=== PATIENT | female | born 1955 | race Caucasian/White ===

== ENCOUNTER → 2019-03-22 | Outpatient (CLI) | payer BC | END | disposition home or self-care (01) | LOC: LAB SHORT 09:24 → LAB EV 09:24 | DX: N39.0 Urinary tract infection, site not specified (principal) | CPT/HCPCS: 87077; 87086; 87186 ==

== ENCOUNTER 2019-05-27 23:18 | Emergency (ER) | payer BC ==
[~2019-05-27] VITALS: Ht 160 cm; Wt 78.5 kg
[2019-05-27] MEDS ORDERED: PEPCID40 MG PO (23:33)
[2019-05-28 00:11] LABS: Source, Urine Clean Catch
[2019-05-28 00:13] LABS: Appearance, Urine Cloudy (Clear); Bilirubin, Urine Neg (Neg); Blood, Urine 5+ (Neg); Color, Urine Yellow (P-Yellow); Glucose Qualitative, Urine Neg (Neg); Ketones, Urine Neg (Neg); Leukocyte Esterase, Urine 3+ (Neg); Nitrite, Urine Neg (Neg); Protein, Urine 3+ (Neg); Urobilinogen, Urine NORM (Normal)
[2019-05-28 00:23] LABS: Bacteria Mod /hpf; Red Blood Cells, Urine 25-50 /hpf (0-2); Squamous Epithelial Cells Not Seen /hpf (Few); White Blood Cells, Urine TNTC /hpf (0-5)
[2019-05-28 00:35] LABS: BASOPHILS ABSOLUTE AUTO 0.03 K/mm3 (0.00-0.23); BASOPHILS PERCENT AUTO 0 % (0-2); EOSINOPHILS ABSOLUTE AUTO 0.09 K/mm3 (0.00-0.68); EOSINOPHILS PERCENT AUTO 1 % (0-6); Hematocrit 40.2 % (33.0-51.0); Hemoglobin 13.2 g/dL (11.5-16.0); IMMATURE GRAN ABSOLUTE AUTO 0.02 K/mm3 (0.00-0.10); IMMATURE GRAN PERCENT AUTO 0 % (0-1); LYMPHOCYTES ABSOLUTE AUTO 0.89 K/mm3 (0.84-5.20); LYMPHOCYTES PERCENT AUTO 10 % (21-46); MONOCYTES ABSOLUTE AUTO 0.73 K/mm3 (0.16-1.47); MONOCYTES PERCENT AUTO 8 % (4-13); Mean Corpuscular HGB Conc 32.8 g/dL (31.5-36.5); Mean Corpuscular Volume 97 fL (80-100); Mean Platelet Volume 10.6 fL (9.1-12.4); NEUTROPHILS ABSOLUTE AUTO 7.14 K/mm3 (1.96-9.15); NEUTROPHILS PERCENT AUTO 80 % (41-73); Platelet Count 215 K/mm3 (150-400); RDW Coefficient Variation 12.7 % (11.7-14.2); RDW Standard Deviation 45.8 fL (35.1-46.3); Red Blood Cell Count 4.13 M/mm3 (3.80-5.20)
[2019-05-28 00:47] LABS: Alanine Aminotransfer (ALT/SGP 34 U/L (12-78); Albumin, Blood 3.7 g/dL (3.4-5.0); Albumin/Globulin Ratio 0.9 (0.8-1.8); Alk Phos 114 U/L (50-136); Anion Gap 7 mmol/L (6-16); Aspartate Aminotrans (AST/SGOT 23 U/L (12-37); Bilirubin, Total 0.3 mg/dL (0.1-1.0); Blood Urea Nitrogen 18 mg/dL (8-24); Bun/Creatinine Ratio 21.7 (12.0-20.0); CO2, Blood 26 mmol/L (21-32); Calcium, Blood 9.1 mg/dL (8.5-10.1); Chloride, Blood 106 mmol/L (98-108); Creatinine, Blood 0.83 mg/dL (0.40-1.00); Glomerular Filtration Rate >60 (60-); Glucose, Blood 107 mg/dL (70-99); Potassium, Blood 3.8 mmol/L (3.5-5.5); Sodium, Blood 139 mmol/L (136-145); Total Protein, Blood 7.7 g/dL (6.4-8.2)
[2019-05-28] MEDS ORDERED: IBUP600 PO (01:57)
[2019-05-28] MEDS ORDERED: CEPH500 PO (01:57)
== END 2019-05-28 02:15 | disposition home or self-care (01) ==
LOC: ER 23:18
PROVIDERS: Emergency Medicine
DX: N39.0 Urinary tract infection, site not specified (principal); Z87.442 Personal history of urinary calculi; K21.9 Gastro-esophageal reflux disease without esophagitis; E78.5 Hyperlipidemia, unspecified; Z88.2 Allergy status to sulfonamides
CPT/HCPCS: 36415; 74176; 80053; 81001; 83690; 85025; 87077; 87086; 87186; 96365; 96375; 99284; J0696; J2270; J2405; J7030

== ENCOUNTER 2020-04-11 17:36 | Emergency (ER) | payer BC ==
[~2020-04-11] VITALS: Ht 160 cm; Wt 79.4 kg
[~2020-04-11 17:36] MED LIST: CEPH500 PO; IBUP600 PO; PEPCID40 MG PO
[2020-04-11 18:08] LABS: Source, Urine Clean Catch
[2020-04-11 18:12] LABS: BASOPHILS ABSOLUTE AUTO 0.04 K/mm3 (0.00-0.23); BASOPHILS PERCENT AUTO 0 % (0-2); EOSINOPHILS ABSOLUTE AUTO 0.04 K/mm3 (0.00-0.68); EOSINOPHILS PERCENT AUTO 0 % (0-6); Hematocrit 41.8 % (33.0-51.0); Hemoglobin 13.7 g/dL (11.5-16.0); IMMATURE GRAN ABSOLUTE AUTO 0.01 K/mm3 (0.00-0.10); IMMATURE GRAN PERCENT AUTO 0 % (0-1); LYMPHOCYTES ABSOLUTE AUTO 1.24 K/mm3 (0.84-5.20); LYMPHOCYTES PERCENT AUTO 13 % (21-46); MONOCYTES ABSOLUTE AUTO 0.61 K/mm3 (0.16-1.47); MONOCYTES PERCENT AUTO 6 % (4-13); Mean Corpuscular HGB 31.5 pg (26.0-34.0); Mean Corpuscular HGB Conc 32.8 g/dL (31.5-36.5); Mean Corpuscular Volume 96 fL (80-100); Mean Platelet Volume 10.2 fL (9.1-12.4); NEUTROPHILS ABSOLUTE AUTO 7.99 K/mm3 (1.96-9.15); NEUTROPHILS PERCENT AUTO 81 % (41-73); Platelet Count 248 K/mm3 (150-400); RDW Coefficient Variation 12.9 % (11.7-14.2); RDW Standard Deviation 46.5 fL (35.1-46.3); Red Blood Cell Count 4.35 M/mm3 (3.80-5.20); White Blood Cell Count 9.93 K/mm3 (4.00-11.30)
[2020-04-11 18:20] LABS: Appearance, Urine Clear (Clear); Bilirubin, Urine Neg (Neg); Blood, Urine Neg (Neg); Color, Urine Yellow (P-Yellow); Glucose Qualitative, Urine Neg (Neg); Ketones, Urine Neg (Neg); Leukocyte Esterase, Urine Neg (Neg); Nitrite, Urine Neg (Neg); Protein, Urine Neg (Neg); Specific Gravity, Urine 1.015 (1.003-1.022); Urobilinogen, Urine NORM (Normal)
[2020-04-11 18:32] LABS: Alanine Aminotransfer (ALT/SGP 48 U/L (12-78); Albumin, Blood 3.8 g/dL (3.4-5.0); Alk Phos 148 U/L (50-136); Anion Gap 8 mmol/L (6-16); Aspartate Aminotrans (AST/SGOT 32 U/L (12-37); Bilirubin, Total 0.3 mg/dL (0.1-1.0); Blood Urea Nitrogen 11 mg/dL (8-24); Bun/Creatinine Ratio 13.9 (12.0-20.0); CO2, Blood 22 mmol/L (21-32); Calcium, Blood 9.2 mg/dL (8.5-10.1); Chloride, Blood 108 mmol/L (98-108); Creatinine, Blood 0.79 mg/dL (0.40-1.00); Globulin, Blood 3.7 g/dL (2.2-4.0); Glomerular Filtration Rate >60 (60-); Glucose, Blood 105 mg/dL (70-99); Potassium, Blood 3.8 mmol/L (3.5-5.5); Sodium, Blood 138 mmol/L (136-145); Total Protein, Blood 7.5 g/dL (6.4-8.2)
[2020-04-11] MEDS ORDERED: AMOCLA875 PO (19:30)
[2020-04-11] MEDS ORDERED: HYDR1TAB94 PO (19:30)
== END 2020-04-11 20:02 | disposition home or self-care (01) ==
LOC: ER 17:36
PROVIDERS: Physician Assistant
DX: K57.33 Diverticulitis of large intestine without perforation or abscess with bleeding (principal); K21.9 Gastro-esophageal reflux disease without esophagitis; E78.5 Hyperlipidemia, unspecified; Z88.2 Allergy status to sulfonamides; Z79.899 Other long term (current) drug therapy
CPT/HCPCS: 36415; 74177; 80053; 81003; 83605; 83690; 84484; 85025; 93005; 93010; 96374-59; 96375; 99284-25; J2270; J2405; J2550; J7030; Q9967

== ENCOUNTER → 2020-07-20 | Outpatient (CLI) | payer BC ==
[~2020-07-20] MED LIST changes: +AMOCLA875 PO; +HYDR1TAB94 PO
[2020-07-25 09:09] LABS: HPV 16 Negative (Negative); HPV 18 Negative (Negative); HPV OTHER HR TYPES Negative (Negative)
== END ==
LOC: LAB 16:59 → LAB SHORT 16:59
PROVIDERS: Family Medicine
DX: Z01.419 Encounter for gynecological examination (general) (routine) without abnormal findings (principal)
CPT/HCPCS: 87624; G0123

== ENCOUNTER → 2020-12-04 | Outpatient (CLI) | payer MEDICARE, BC ==
[2020-12-04 11:59] LABS: BASOPHILS ABSOLUTE AUTO 0.02 K/mm3 (0.00-0.23); BASOPHILS PERCENT AUTO 1 % (0-2); EOSINOPHILS ABSOLUTE AUTO 0.05 K/mm3 (0.00-0.68); EOSINOPHILS PERCENT AUTO 1 % (0-6); Hematocrit 42.6 % (33.0-51.0); Hemoglobin 14.6 g/dL (11.5-16.0); IMMATURE GRAN ABSOLUTE AUTO 0.01 K/mm3 (0.00-0.10); IMMATURE GRAN PERCENT AUTO 0 % (0-1); LYMPHOCYTES ABSOLUTE AUTO 1.15 K/mm3 (0.84-5.20); LYMPHOCYTES PERCENT AUTO 27 % (21-46); MONOCYTES ABSOLUTE AUTO 0.46 K/mm3 (0.16-1.47); MONOCYTES PERCENT AUTO 11 % (4-13); Mean Corpuscular HGB Conc 34.3 g/dL (31.5-36.5); Mean Corpuscular Volume 93 fL (80-100); Mean Platelet Volume 10.3 fL (9.1-12.4); NEUTROPHILS ABSOLUTE AUTO 2.63 K/mm3 (1.96-9.15); NEUTROPHILS PERCENT AUTO 61 % (41-73); Platelet Count 175 K/mm3 (150-400); RDW Coefficient Variation 13.1 % (11.7-14.2); RDW Standard Deviation 44.6 fL (35.1-46.3); Red Blood Cell Count 4.56 M/mm3 (3.80-5.20); White Blood Cell Count 4.32 K/mm3 (4.00-11.30)
[2020-12-04 12:11] LABS: Alanine Aminotransfer (ALT/SGP 59 U/L (12-78); Albumin, Blood 3.9 g/dL (3.4-5.0); Albumin/Globulin Ratio 0.9 (0.8-1.8); Alk Phos 204 U/L (40-126); Anion Gap 10 mmol/L (6-16); Aspartate Aminotrans (AST/SGOT 36 U/L (12-37); Bilirubin, Total 0.4 mg/dL (0.1-1.0); Blood Urea Nitrogen 10 mg/dL (8-24); Bun/Creatinine Ratio 10.8 (12.0-20.0); CO2, Blood 27 mmol/L (21-32); Calcium, Blood 8.9 mg/dL (8.5-10.1); Chloride, Blood 102 mmol/L (98-108); Creatinine, Blood 0.93 mg/dL (0.40-1.00); Globulin, Blood 4.2 g/dL (2.2-4.0); Glomerular Filtration Rate >60 (60-); Glucose, Blood 112 mg/dL (70-99); Potassium, Blood 3.9 mmol/L (3.5-5.5); Sodium, Blood 139 mmol/L (136-145); Total Protein, Blood 8.1 g/dL (6.4-8.2)
== END | disposition home or self-care (01) ==
LOC: LAB SHORT 11:56 → LAB 11:56
PROVIDERS: Chiropractor
DX: R11.2 Nausea with vomiting, unspecified (principal)
CPT/HCPCS: 80053; 85025

== ENCOUNTER → 2020-12-07 | Outpatient (CLI) | payer MEDICARE, BC ==
[2020-12-07 12:12] LABS: BASOPHILS ABSOLUTE AUTO 0.02 K/mm3 (0.00-0.23); BASOPHILS PERCENT AUTO 1 % (0-2); EOSINOPHILS ABSOLUTE AUTO 0.01 K/mm3 (0.00-0.68); EOSINOPHILS PERCENT AUTO 0 % (0-6); Hematocrit 39.8 % (33.0-51.0); Hemoglobin 13.8 g/dL (11.5-16.0); IMMATURE GRAN ABSOLUTE AUTO 0.02 K/mm3 (0.00-0.10); IMMATURE GRAN PERCENT AUTO 1 % (0-1); LYMPHOCYTES ABSOLUTE AUTO 0.84 K/mm3 (0.84-5.20); LYMPHOCYTES PERCENT AUTO 20 % (21-46); MONOCYTES ABSOLUTE AUTO 0.35 K/mm3 (0.16-1.47); MONOCYTES PERCENT AUTO 8 % (4-13); Mean Corpuscular HGB 32.4 pg (26.0-34.0); Mean Corpuscular HGB Conc 34.7 g/dL (31.5-36.5); Mean Corpuscular Volume 93 fL (80-100); Mean Platelet Volume 10.5 fL (9.1-12.4); NEUTROPHILS ABSOLUTE AUTO 3.03 K/mm3 (1.96-9.15); NEUTROPHILS PERCENT AUTO 71 % (41-73); Platelet Count 173 K/mm3 (150-400); RDW Coefficient Variation 12.6 % (11.7-14.2); RDW Standard Deviation 43.5 fL (35.1-46.3); Red Blood Cell Count 4.26 M/mm3 (3.80-5.20); White Blood Cell Count 4.27 K/mm3 (4.00-11.30)
[2020-12-07 12:44] LABS: Alanine Aminotransfer (ALT/SGP 45 U/L (12-78); Albumin, Blood 3.5 g/dL (3.4-5.0); Albumin/Globulin Ratio 0.9 (0.8-1.8); Alk Phos 154 U/L (50-136); Anion Gap 7 mmol/L (6-16); Aspartate Aminotrans (AST/SGOT 26 U/L (12-37); Bilirubin, Total 0.5 mg/dL (0.1-1.0); Blood Urea Nitrogen 8 mg/dL (8-24); Bun/Creatinine Ratio 9.3 (12.0-20.0); CO2, Blood 28 mmol/L (21-32); Calcium, Blood 8.1 mg/dL (8.5-10.1); Chloride, Blood 99 mmol/L (98-108); Creatinine, Blood 0.86 mg/dL (0.40-1.00); Globulin, Blood 4.1 g/dL (2.2-4.0); Glomerular Filtration Rate >60 (60-); Glucose, Blood 104 mg/dL (70-99); Potassium, Blood 3.5 mmol/L (3.5-5.5); Sodium, Blood 134 mmol/L (136-145); Total Protein, Blood 7.6 g/dL (6.4-8.2)
== END | disposition home or self-care (01) ==
LOC: LAB SHORT 12:04 → LAB 12:04
PROVIDERS: Physician Assistant
DX: U07.1 COVID-19 (principal)
CPT/HCPCS: 80053; 85025

== ENCOUNTER 2021-03-05 10:51 | Day surgery (SDC) | payer MEDICARE, BC ==
[~2021-03-05] VITALS: Ht 160 cm; Wt 78.6 kg
[~2021-03-05 10:51] MED LIST changes: +ATROVENT HFA12.9 GM IH; +BENADRYL25 MG PO; +HYDROCORTISONE30 GM EXT; +NAPR500 PO; +OMEP20ER PO; +TIZA4 PO; +TRIA15CR3; +[UNRECOGNIZED DRUG - OTHER] PO
--- NOTE | 2021-03-05 12:50 | NUR ---
03/05/21 1249 Velia Locke TIME OUT AT 1237 TO VERIFY CORRECT PATIENT, PROCEEDURE, SITE AND ALLERGIES. PT HAS NO QUESTIONS OR CONCERNS. RELAXING MEDICATION GIVEN PER DR. HILL. OXYGEN AT 6L VIA NON-REBREATHER. VSS THROUGHTOUT THE PROCEEDURE. PT TOLERATED WELL.
--- NOTE | 2021-03-05 13:07 | NUR ---
03/05/21 1307 Leonor Pizarro 1 MG EPI ADDED TO EACH OF THE FIRST 3 BAGS OF LR PER ORDER FOR IRRIGATION.
== END 2021-03-05 15:00 | disposition home or self-care (01) ==
LOC: ORSCSDS 10:51
PROVIDERS: Orthopaedic Surgery
PROC: 0LM14ZZ Reattachment of Right Shoulder Tendon, Percutaneous Endoscopic Approach (ICD-10-PCS; principal; 2021-03-05 12:30)
PROC: 0RNJ4ZZ Release Right Shoulder Joint, Percutaneous Endoscopic Approach (ICD-10-PCS; principal; 2021-03-05 12:30)
PROC: 0LS34ZZ Reposition Right Upper Arm Tendon, Percutaneous Endoscopic Approach (ICD-10-PCS; principal; 2021-03-05 12:30)
DX: M75.111 Incomplete rotator cuff tear or rupture of right shoulder, not specified as traumatic (principal); M75.21 Bicipital tendinitis, right shoulder; M75.41 Impingement syndrome of right shoulder; F41.9 Anxiety disorder, unspecified; Z79.899 Other long term (current) drug therapy
CPT/HCPCS: C1713; J0171; J0690; J1100; J1885; J2250; J2370; J2405; J2704; J3010; J7120

== ENCOUNTER → 2022-04-29 | Outpatient (CLI) | payer MEDICARE, BC ==
[~2022-04-29] MED LIST changes: +CALCIUM 500 MG1 EAC2; +CENTRUM SILVER1 EAC2; +NITR100CA PO; +ONDA4ODT MM
[2022-04-29 18:02] LABS: BASOPHILS ABSOLUTE AUTO 0.02 K/mm3 (0.00-0.23); BASOPHILS PERCENT AUTO 0 % (0-2); EOSINOPHILS ABSOLUTE AUTO 0.07 K/mm3 (0.00-0.68); EOSINOPHILS PERCENT AUTO 1 % (0-6); IMMATURE GRAN ABSOLUTE AUTO 0.02 K/mm3 (0.00-0.10); IMMATURE GRAN PERCENT AUTO 0 % (0-1); LYMPHOCYTES ABSOLUTE AUTO 0.53 K/mm3 (0.84-5.20); LYMPHOCYTES PERCENT AUTO 7 % (21-46); MONOCYTES ABSOLUTE AUTO 0.38 K/mm3 (0.16-1.47); MONOCYTES PERCENT AUTO 5 % (4-13); Mean Corpuscular HGB 32.5 pg (26.0-34.0); Mean Corpuscular HGB Conc 34.1 g/dL (31.5-36.5); Mean Corpuscular Volume 95 fL (80-100); Mean Platelet Volume 10.1 fL (9.1-12.4); NEUTROPHILS ABSOLUTE AUTO 6.89 K/mm3 (1.96-9.15); NEUTROPHILS PERCENT AUTO 87 % (41-73); Platelet Count 215 K/mm3 (150-400); RDW Coefficient Variation 13.1 % (11.7-14.2); RDW Standard Deviation 46.1 fL (35.1-46.3); Red Blood Cell Count 4.31 M/mm3 (3.80-5.20); White Blood Cell Count 7.91 K/mm3 (4.00-11.30)
[2022-04-29 18:04] LABS: Albumin, Blood 3.8 g/dL (3.4-5.0); Bilirubin, Total 0.4 mg/dL (0.1-1.0); Bun/Creatinine Ratio 10.6 (12.0-20.0); Creatinine, Blood 0.94 mg/dL (0.40-1.00); Globulin, Blood 3.8 g/dL (2.2-4.0); Potassium, Blood 3.6 mmol/L (3.5-5.5); Total Protein, Blood 7.6 g/dL (6.4-8.2)
== END | disposition home or self-care (01) ==
LOC: LAB SHORT 17:49 → LAB 17:49
PROVIDERS: Emergency Medicine
DX: R55 Syncope and collapse (principal)
CPT/HCPCS: 80053; 84484; 85025

== ENCOUNTER → 2022-08-12 | Outpatient (CLI) | payer MEDICARE, BC ==
[~2022-08-12] MED LIST changes: -CALCIUM 500 MG1 EAC2; +CALCIUM 500 MG1 EAC2 PO; -CENTRUM SILVER1 EAC2; +CENTRUM SILVER1 EAC2 PO
[2022-08-14 13:12] LABS: HSV-1 DNA Positive (Negative); HSV-2 DNA Negative (Negative)
== END | disposition home or self-care (01) ==
LOC: LAB SHORT 16:58 → LAB 16:58
PROVIDERS: Obstetrics & Gynecology
DX: A60.9 Anogenital herpesviral infection, unspecified (principal)
CPT/HCPCS: 87070; 87077; 87186; 87205; 87529

== ENCOUNTER → 2023-06-04 | Outpatient (CLI) | payer MEDICARE, BC ==
[2023-06-04 20:02] LABS: Bacterial Vaginosis PCR Negative (NEGATIVE); Candida Group, PCR NOT DETECTED (NOT DETECT); Candida glabrata-krusei, PCR NOT DETECTED (NOT DETECT)
== END | disposition home or self-care (01) ==
LOC: LAB SHORT 17:46 → LAB 17:46
PROVIDERS: Family Medicine
DX: N76.0 Acute vaginitis (principal)
CPT/HCPCS: 87481; 87661; 87801

== ENCOUNTER 2023-12-04 06:20 | Day surgery (SDC) | payer MEDICARE, BC ==
[~2023-12-04] VITALS: Ht 160 cm; Wt 78.8 kg
[2023-12-04] MEDS ORDERED: Lactated Ringer's 1,000 ML IV ONE ×2 (06:36→06:51)
[2023-12-04] MEDS ORDERED: CeFAZolin Sodium 2,000 MG VIAL ONE (06:36)
[2023-12-04] MEDS ORDERED: NS 50 ML IV ONE (06:36)
[2023-12-04] MEDS ORDERED: Ropivacaine 0.5% HCL/PF 5 MG/ML 30ML Vial ONE (06:59)
[2023-12-04] MEDS ORDERED: Midazolam HCl 1MG / ML 2ML Vial ONE (07:14)
[2023-12-04] MEDS ORDERED: propofoL 40 ML IV ONE (07:17)
[2023-12-04] MEDS ORDERED: FentaNYL Citrate 50 MCG/ML 2 ML Injection ONE (07:18)
[2023-12-04] MEDS ORDERED: ePHEDrine Sulfate 50 MG/ML 1ML Injection ONE (07:30)
[2023-12-04] MEDS ORDERED: Dexamethasone Sod Phos 10 MG/ML 1ML VIAL ONE (07:35)
[2023-12-04] MEDS ORDERED: EPINEPhrine HCl 1 MG/ML 1ML Amp XX ONE (07:50)
[2023-12-04] MEDS ORDERED: Ondansetron HCl 2 MG / ML 2ML Vial ONE (07:56)
[2023-12-04] MEDS ORDERED: Ketorolac Tromethamine 30mg Vial ONE (07:56)
[2023-12-04] MEDS ORDERED: Bacitracin Ointment 30 GM XX ONE (07:59)
[2023-12-04] MEDS ORDERED: Phenylephrine HCl 100 MCG/ML-NS 10MLSYR (1MG/10ML) ONE (08:28)
--- NOTE | 2023-12-04 09:15 | NUR ---
12/04/23 0915 Tita Forrest PT DENIED ANY PAIN, NO C/O OF NAUSEA. PT ABLE TO TOLERATE FLUIDS AND SNACK. PT EDUCATION PROVIDED WITH PT AND HER WHO WAS PRESENT. RESTRICTIONS: PT WEIGHT-BEARING WITH BOOT. ALL QUESTIONS WERE ANSWERED, CONCERNS ADDRESSED. PT ASSISTED TO PRIVATE VEHICLE VIA WC. PT CALM AND COOPERATIVE WITH CARE. PT COLLECTED ALL PERSONAL BELONGINGS, HER BOOT, AND PURSE, ONE TENNIS SHOE AND CLOTHES.
[2023-12-04 09:17] VITALS: BP 110/69
== END 2023-12-04 09:05 | disposition home or self-care (01) ==
LOC: ORSCSDS 06:20
PROVIDERS: Podiatrist Foot & Ankle Surgery
PROC: 0SGP04Z Fusion of Right Toe Phalangeal Joint with Internal Fixation Device, Open Approach (ICD-10-PCS; 2023-12-04)
PROC: 0SRP0JZ Replacement of Right Toe Phalangeal Joint with Synthetic Substitute, Open Approach (ICD-10-PCS; principal; 2023-12-04 07:30)
DX: M20.41 Other hammer toe(s) (acquired), right foot (principal); M81.0 Age-related osteoporosis without current pathological fracture; Z79.899 Other long term (current) drug therapy
CPT/HCPCS: A9270; C1776; J0171; J0690; J1100; J1885; J2250; J2371; J2405; J2704; J2795; J3010; J7120

== ENCOUNTER → 2024-01-15 | Outpatient (CLI) | payer MEDICARE, BC ==
[2024-01-15 07:33] LABS: BASOPHILS ABSOLUTE AUTO 0.04 K/mm3 (0.00-0.23); BASOPHILS PERCENT AUTO 1 % (0-2); EOSINOPHILS ABSOLUTE AUTO 0.08 K/mm3 (0.00-0.68); EOSINOPHILS PERCENT AUTO 1 % (0-6); Hematocrit 40.4 % (33.0-51.0); Hemoglobin 13.7 g/dL (11.5-16.0); IMMATURE GRAN ABSOLUTE AUTO 0.02 K/mm3 (0.00-0.10); IMMATURE GRAN PERCENT AUTO 0 % (0-1); LYMPHOCYTES ABSOLUTE AUTO 1.33 K/mm3 (0.84-5.20); LYMPHOCYTES PERCENT AUTO 17 % (21-46); MONOCYTES ABSOLUTE AUTO 0.44 K/mm3 (0.16-1.47); MONOCYTES PERCENT AUTO 6 % (4-13); Mean Corpuscular HGB 32.2 pg (26.0-34.0); Mean Corpuscular HGB Conc 33.9 g/dL (31.5-36.5); Mean Corpuscular Volume 95 fL (80-100); NEUTROPHILS ABSOLUTE AUTO 5.91 K/mm3 (1.96-9.15); NEUTROPHILS PERCENT AUTO 76 % (41-73); Platelet Count 243 K/mm3 (150-400); RDW Coefficient Variation 13.7 % (11.7-14.2); RDW Standard Deviation 47.6 fL (35.1-46.3); Red Blood Cell Count 4.25 M/mm3 (3.80-5.20); White Blood Cell Count 7.82 K/mm3 (4.00-11.30)
[2024-01-15 07:45] LABS: Albumin, Blood 3.7 g/dL (3.4-5.0); Bilirubin, Total 0.4 mg/dL (0.1-1.0); Bun/Creatinine Ratio 18.8 (12.0-20.0); Calcium, Blood 9.2 mg/dL (8.5-10.1); Creatinine, Blood 0.8 mg/dL (0.40-1.00); Globulin, Blood 3.8 g/dL (2.2-4.0); Potassium, Blood 4.1 mmol/L (3.5-5.5); Total Protein, Blood 7.5 g/dL (6.4-8.2)
== END | disposition home or self-care (01) ==
LOC: LAB SHORT 07:29 → LAB 07:29
PROVIDERS: Emergency Medicine
DX: R04.0 Epistaxis (principal)
CPT/HCPCS: 80053; 85025